=== PATIENT | female | born 1955 | race Caucasian/White ===

== ENCOUNTER → 2024-07-27 | Day surgery (SDC) | payer MEDICAID ==
[~2024-07-27] VITALS: Ht 134.6 cm; Wt 63.5 kg
[~2024-07-27] MED LIST: BUPIVACAINE HCL/PF 0.5% (5MG/ML) 10ML ONE; CALC1CAP22 PO; CEL200 PO; ETOMIDATE 2MG/ML 10ML VIAL IV ONE; FENTANYL CITRATE/PF 50MCG/ML 5ML VIAL ONE; GLYCOPYRROLATE 0.2 MG/ML 2ML VIAL ONE; GLYCOPYRROLATE 0.2MG/ML VIAL 5ML IV PRN; HYDRALAZINE 20MG/ML VIAL IV PRN; HYDROMORPHONE HCL/PF 1MG/ML INJ IV PRN; LABETALOL 5MG/ML 4ML INJ IV PRN; LACTATED RINGERS 1,000 ML IV SCH; LEVO75TA PO; LISI-186 PO; NEOSTIGMINE METHYLSULFATE 1MG/ML 10 ML VIAL ONE; ONDANSETRON HCL 4MG/2ML INJ IV PRN; ROCURONIUM BROMIDE 10MG/ML VIAL 5ML IV ONE; SKIN ADHESIVE 0.7 GM EA TOP ONE
[2024-07-27] MEDS: HYDROMORPHONE HCL/PF 1MG/ML INJ IV PRN ×2 (13:11→13:42)
[2024-07-27 14:28] VITALS: BP 131/73; PULSE 57; RESP 15
[2024-07-27] MEDS: ACETAMINOPHEN WITH CODEINE 300/30MG TABLET PO NR (14:28)
== END | disposition home or self-care (01) ==
LOC: OR 08:24
PROVIDERS: ATTEND Surgery
DX: K40.90 Unilateral inguinal hernia, without obstruction or gangrene, not specified as recurrent (principal); I10 Essential (primary) hypertension; E03.9 Hypothyroidism, unspecified; E66.9 Obesity, unspecified; N13.30 Unspecified hydronephrosis; I70.0 Atherosclerosis of aorta; K21.9 Gastro-esophageal reflux disease without esophagitis; M17.11 Unilateral primary osteoarthritis, right knee; Z79.899 Other long term (current) drug therapy; Z98.890 Other specified postprocedural states; Z68.35 Body mass index [BMI] 35.0-35.9, adult
CPT/HCPCS: 49505; 82962; J2710; J3010; J0665; J3490 ×3; J1171; A4606; C1781